=== PATIENT | male | born 1940 | race Caucasian/White ===

== ENCOUNTER 2024-04-08 04:17 | Emergency (ER) | payer MEDICARE, BC, SELFPAY ==
[2024-04-08 04:23] VITALS: BP 97/60; BP 97/80; PULSE 85; PULSE 88; PULSE 93; RESP 143; RESP 16; RESP 17; TEMP 36.7; O2SAT 99; BMI 20.3
--- NOTE | 2024-04-08 04:24 | XR_ITS ---
Examination: CT cervical spine without contrast 2-D sagittal reconstructions 2-D coronal reconstructions 3-D reconstructions. Exam date and time:April 08, 2024 0455 hrs. Indications: Patient fell today with injury to the neck, neck pain CTDI:vol (mGy) 7.50 DLP: (mGycm) 171 Technique: Multiple 2 mm axial sections of the cervical spine have been obtained. The coronal and sagittal reconstructions have been obtained. 3-D reconstructions have been obtained. Low dose protocols were performed. One or more of the following dose reduction techniques were used; automated exposure control, adjustment of the mA and/or KV according to patient size, use of iterative reconstruction technique. Findings: Axial sections demonstrate intact base of the skull. C1 exhibit satisfactory relationship to the odontoid. No acute cervical vertebral body fracture seen. Alignment posterior spinous processes satisfactory. Impression: No acute cervical fracture.
--- NOTE | 2024-04-08 04:24 | XR_ITS ---
Examination: CT brain head without contrast. 2-D sagittal coronal reconstructions Date and time of exam:April 08, 2024 at 0455 hrs. Indications: Patient fell today with injury to the head, head pain CTDI: vol (mGy):54.3 DLP: (mGycm):1122 Technique: Multiple CT axial sections of the brain have been obtained, 5 mm slice thickness. Contrast has not been administered. 2-D sagittal, coronal reconstructions have been obtained Low dose protocols were performed. One or more of the following dose reduction techniques were used; automated exposure control, adjustment of the mA and/or KV according to patient size, use of iterative reconstruction technique. Findings: Mild to moderate ventricular enlargement. Old infarct in the right cerebellar hemisphere Intra-axial or extra-axial hemorrhage density is not seen. No mass effect or midline shift Basal cisterns are not remarkable. Fourth ventricle is midline. Cranial vault intact. Impression: Negative for acute hemorrhage, mass effect or midline shift
--- NOTE | 2024-04-08 04:34 | EDNOTE_ITS ---
ED Fall Injury RME/HPI General Chief Complaint: Fall Stated Complaint: fall Time Seen by Provider: 04/08/24 04:24 Arrival date/time: 04/08/24 04:17 RME / HPI RME / HPI Narrative: Dr. Eas[facility]?s Main ED Evaluation: 83yo male with pmhx CVA, CAD s/p permanent pacemaker, AFib, hypertension BIB[facility] from [facility] presents to the ED for a chief complaint of a fall. Patient states he does not remember falling tonight. He does not have any medical complaints. Per EMS, patient's fall was unwitnessed. Unknown LOC. Patient is on Plavix. No further history reported at this time. Patient is a DNR/DNI. Related Data Home Medications ?Medication ?Instructions ?Recorded ?Confirmed cyanocobalamin (vitamin B-12) 1,000 mcg PO QDAY #0 tabs 03/25/15 01/23/21 1,000 mcg tablet (Vitamin B-12) lisinopril 5 mg tablet 5 mg PO QDAY #0 tabs 03/12/16 01/23/21 cholecalciferol (vitamin D3) 50 2,000 unit PO QDAY #0 caps 05/28/16 01/23/21 mcg (2,000 unit) capsule (Vitamin D3) famotidine 20 mg tablet 20 mg PO DAILY 07/02/20 01/23/21 selegiline HCl 5 mg tablet 5 mg PO BID 01/23/21 01/23/21 Previous Rx's ?Medication ?Instructions ?Recorded clopidogrel 75 mg tablet 75 mg PO QDAY BLOOD THINNER #0 tabs 07/05/20 Allergies Allergy/AdvReac Type Severity Reaction Status Date / Time codeine Allergy Severe HIVES, Verified 01/07/24 13:59 ITCHING Review of Systems Review of Systems Systems Reviewed: All systems reviewed, normal except as documented Past Medical History Past Medical History NEUROLOGIC: Positive Neurological Disorders, Cerebrovascular Accident, Transient Ischemic Attacks (TIA), Dementia and Parkinson's Disease; Negative Alzheimer's Disease, Brain Tumor, Meningitis, Seizures, Epilepsy, Multiple Sclerosis, Cerebral Palsy, Amyotrophic Lateral Sclerosis (ALS/Cele Gehrig's), Guillain-[place] Syndrome, Spina Bifida, Paralysis, Peripheral Neuropathy, Dasilva's Palsy, Subdural Hematoma, Migraine, Head Trauma, Spinal Cord Injury or Traumatic Brain Injury CARDIAC: Positive Cardiac Disorders and Hypertension; Negative Myocardial Infarction, Cardiac Arrhythmia, Atrial Fibrillation, Angina, Heart Murmur, Coronary Artery Disease, Atherosclerotic Heart Disease, Peripheral Vascular Disease, Hypercholesterolemia, Aneurysm, Congestive Heart Failure, Congenital Heart Disease, Valvular Heart Disease, Rheumatic Fever, Cardiomyopathy, Edema, Pericarditis, Cellulitis, Deep Vein Thrombosis, Hypotension or Varicose Veins RESPIRATORY: Positive Pulmonary Embolism; Negative Chronic Obstructive Pulmonary Disease (COPD), Asthma, Bronchitis, Emphysema, Pneumonia, Pulmonary Fibrosis, Cystic Fibrosis, Tuberculosis, Pulmonary Edema or Sleep Apnea GASTROINTESTINAL: Positive Gastrointestinal Disorders, Hemorrhoids and Gastroesophageal Reflux Disease; Negative Hepatitis, Cirrhosis, Pancreatitis, Celiac Disease, Gall Bladder Disease, Gastrointestinal Bleed, Esophageal Varices, [place]'s Esophagus, Colitis, Ulcerative Colitis, Diverticulitis, Diverticulosis, Ulcer, Colorectal Cancer, Irritable Bowel, Crohn's Disease, Obstructive Bowel, Hiatal Hernia or Obesity GENITOURINARY: Negative Genitourinary Disorders, Renal Disease, Kidney Stones, Polycystic Kidney Disease, Neurogenic Bladder, Inguinal Hernia, Dialysis, Prostate Cancer or Benign Prostatic Hyperplasia REPRODUCTIVE: Negative Breast Cancer or Testicular Cancer MUSCULOSKELETAL: Positive Musculoskeletal Disorders, Arthritis and Fractures; Negative Muscular Dystrophy, Myasthenia Gravis, Marfan's Syndrome, Bone Cancer, Rheumatoid Arthritis, Osteoporosis, Degenerative Disk Disease, Gout, Scoliosis, Carpal Tunnel Syndrome, Fibromyalgia, Degenerative Joint Disease, Osteomyelitis or Poliovirus ENT: Positive Cataracts, Macular Degeneration and Deafness; Negative Glaucoma, Blind, Retinal Detachment, Ear Infection, Head Trauma or Eye Prosthesis ENDOCRINE: Negative Endocrine Disorders, Diabetes Mellitus Type 1, Diabetes Mellitus Type 2, Hypoglycemia, [place]'s Syndrome, [place]'s Disease, Hyperthyroidism, Hypothyroidism, Parathyroid Disease, Pituitary Disease, Systemic Lupus Erythematosus, Syndrome of Inappropriate Antidiuretic Hormone (SIADH), Adrenal Disease or Graves' Disease HEMATOLOGIC: Positive Blood Disorders and Clotting Problems; Negative Anemia, Leukemia, Hemophilia, Thalassemia or Sickle Cell Disease PSYCHO/SOCIAL: Positive Depression; Negative Psychiatric Problems, Schizophrenia, Recreational Drug Use, Bipolar Disorder, Anxiety, Behavior Problems, Self-Mutilation, Attention Deficit Disorder, Attention Deficit Hyperactivity Disorder, Depression, Post Traumatic Stress Disorder or Eating Disorder OTHER HISTORY: Positive Hospitalization, Falls, Chemotherapy, Radiation Therapy, Chicken Pox, Measles, Mumps, Cancer and Lung Cancer; Negative Autoimmune Disease, Down Syndrome, Autism, Developmental Delay, Shingles, Blood Transfusions, Blood Transfusion Reaction, Anesthesia Reactions, Organ Transplant, Hyperbaric Therapy, MRSA, VRSA, Vancomycin-Resistant Enterococci, Human Immunodeficiency Virus (HIV), Rubella ([place]erratian Measles), Pertussis, Clostridium Difficile, Breast Cancer, Colorectal Cancer, Prostate Cancer or Testicular Cancer Family History FAMILY HISTORY: Positive Family Respiratory Disorders, Family Cancer and Family Surgery; Negative Family Psychiatric Problems, Family Cardiac Disorders (pt dont know family med hx), Family Gastrointestinal Problems or Family Anesthesia Reaction Surgical History SURGICAL: Positive Eye Surgery (bilateral cataracts surgery) and Abdominal Surgery; Negative Cardiac Surgery, Open Heart Surgery, Coronary Artery Bypass Graft, Valve Replacement, Vascular Surgery, Coronary Stent, Cardiac Catheterization, Pacemaker, Angiogram, Auto Implanted Cardiovert Defib, Carotid Endarterectomy, Endocrine Surgery, Thyroidectomy, Ear Surgery, Tympanostomy Tube, Nose Surgery, Oral Surgery, Tonsillectomy, Adenoidectomy, Cochlear Implant, Corneal Transplant, Throat Surgery, Tracheostomy, Gastric Bypass Surgery, Gastrostomy, Bowel Surgery, Nephrectomy, Transurethral Resection, Joint Replacement, Amputation, Open Reduction Internal Fixation, Arthroscopy, Neurologic Surgery, Brain Shunt, Vasectomy or Organ Transplant Social History SMOKING STATUS: Unknown if ever smoked ED Exam Narrative Physical exam: GENERAL APPEARANCE: alert and oriented x 4, well-developed, well-nourished, no acute distress VITALS: All vitals were reviewed and the pulse ox is % on room air, which is normal according to my interpretation. HEENT: Normocephalic, 5 cm linear laceration to the right parietal area, has well healed surgical scars to various areas on the scalp; pupils are pinpoint; EOMI; mucous membranes pink, moist; oropharynx clear NECK: Supple LUNGS: CTABL; no wheezes, no rales, no rhonchi HEART: Regular rate, regular rhythm; normal S1, S2; no murmurs ABDOMEN: non distended; normal BS; soft, no tenderness, no guarding, no rebound; no masses, no organomegaly, no hernia BACK: no CVA tenderness EXTREMITIES: atraumatic; no edema NEUROLOGIC: awake; alert and oriented x4; cranial nerves II-XII grossly intact; no focal sensory or motor deficits PSYCHIATRIC: appropriate mood and affect SKIN: warm, dry, normal color; no rashes Course Quality Measures none Orders Category Date Time Status EKG (ED ONLY) *Do not use* NOW Care 04/08/24 04:[address] cervical spine wo con Stat Exams 04/08/24 04:[address] head/brain wo con Stat Exams 04/08/24 04:24 Taken EKG (ED Only) Stat Exams 04/08/24 04:34 Ordered Vital Signs Vital signs: Vital Signs Temperature 98.0 F 04/08/24 04:23 Pulse Rate 93 04/08/24 04:23 Respiratory Rate 143 H 04/08/24 04:23 Blood Pressure 97/60 04/08/24 04:23 Pulse Oximetry (%) 99 04/08/24 04:23 Oxygen Delivery Method Room Air 04/08/24 04:23 Fall MDM Narrative MDM Narrative:: I placed 7 shi to the patient's right parietal area. Patient tolerated well. Patient data External records reviewed:: [facility] previous records (Per chart review, patient was seen here on 01/07/[address] [facility] for a C4 fx.) and [facility] records (Per POL, patient is a DNR/DNI.) Clinical information provided by:: patient Social determinants that could affect healthcare access:: none Patient has the following chronic illnesses:: CVA, CAD s/p permanent pacemaker, AFib, on Plavix, hypertension How is presenting disease/condition affected by chronic disease/condition?: uneffected by Evaluation data The following diagnostics were reviewed and interpreted by me:: lab results, radiology exam(s) and EKG tracing(s) Lab and/or radiology exams considered but not ordered:: none Interpretation Summary: EKG done at 0436, aFib, rate of 87, left axis deviation, no STEMI, according to my interpretation. ----- [facility] Preliminary Report Draft Patient: MIKE ROY [facility]. Record#: [id number] Birthdate: 1940 Age/Sex: 83 / M Location: [facility] Attending Dr: Ordering Physician: Date of Service: Procedure(s): Accession Number(s): cc: ~ CT scan of the head without intravenous contrast (axial sections with sagittal and coronal reformats) April 08, 2024 0455 hours Clinical History: fell Comparison: No prior study is available for comparison. Findings: There is no evidence of intracranial hemorrhage, mass effect or midline shift. There is a chronic infarct in the right cerebellum. There are periventricular white matter hypodensities, compatible with chronic small vessel ischemia. There is moderate volume loss. The calvarium is intact. The mastoid air cells and the visualized paranasal sinuses are clear. There is a small hematoma/ laceration in the right frontal scalp. Impression: No evidence of intracranial hemorrhage, midline shift or calvarial fracture. Periventricular chronic small vessel ischemia,chronic infarct. and volume loss. Report Electronically Signed By: Rashard Green 04/08/2024 5:27:08 AM [EST] ------ [facility] Preliminary Report Draft Patient: MIKE ORY. Record#: [id number] Birthdate: 1940 Age/Sex: 83 / M Location: [facility] Attending Dr: Ordering Physician: Date of Service: Procedure(s): Accession Number(s): cc: ~ CT scan of the cervical spine without intravenous contrast (axial sections with sagittal and coronal reformats) April 08, 2024 0455 hours Clinical History: fell Comparison: No prior study is available for comparison. Findings: There is no acute fracture or traumatic subluxation. There is a chronic deformity of the C5 spinous process. There are multilevel degenerative changes in the form of marginalbridging osteophytes, endplate changes, decreased disc height, uncinate process and facet arthrosis, most prominent at C4-C5, C5-C6 and C6-C7 levels causing mild spinal canal and bilateral neural foraminal narrowing. The prevertebral soft tissues are unremarkable. Impression: No evidence of acute fracture or traumatic subluxation. Degenerative changes as described above. Report Electronically Signed By: Rashard Green 04/08/2024 5:34:33 AM [EST] Medications / Prescriptions Medications or Prescriptions considered but not ordered:: none Medication administrations:: see above, if any Consultations Consultation(s) initiated? (list below): No Diagnosis Fall Differential Diagnosis: other (fall with injury, laceration, concussion, ICH) Most likely diagnosis given after review of the tests above:: see below Admission Indicated Admission indicated?: not indicated Admission Request Was there a request for admission?: No Disposition Plan Disposition Plan: Discharge Discharge Attestation Discharge Attestation: The patient and all family members were given an opportunity to ask questions and understood the discharge instructions. Discharge instructions specifically effects, indications for sooner follow up or return to the emergency department, and the expected course of current diagnosis. Patient condition: Stable Discharge Plan Plan Patient Disposition: Xfer Skilled Nsg Fac (SNF) Patient condition on transfer: Stable Prescriptions/Referrals Prescriptions/Med Rec: No Action cyanocobalamin (vitamin B-12) [Vitamin B-12] 1,000 MCG tablet 1,000 mcg PO QDAY Qty: 0 lisinopril 5 MG tablet 5 mg PO QDAY Qty: 0 cholecalciferol (vitamin D3) [Vitamin D3] 2,000 UNIT capsule 2,000 unit PO QDAY Qty: 0 famotidine 20 mg Tablet 20 mg PO DAILY clopidogrel 75 MG tablet 75 mg PO QDAY Qty: 0 0RF Hold Instructions: Resume on 01/30/21. Rx Instructions: Continue on 07/06/20 selegiline HCl 5 mg Tablet 5 mg PO BID Referrals: Travon Huffman MD [Primary Care Provider] - In 1 week Problem List Clinical Impression: Fall Patient/Caregiver Discharge Instructions Education Materials: Preventing Falls Making ..., ED Fall with Uncertain Cause Additional Instructions: Your CT scans are negative for any acute fractures or bleeding. Please follow up with your PCP in 24 to 48 hours. Return to ED immediately for any worsening symptoms or as needed. Print Language: Indonesian Stand Alone Forms: Cyndi Award Info., Patient Portal Info Letter
--- NOTE | 2024-04-08 05:27 | PRELIM_ITS ---
CT scan of the head without intravenous contrast (axial sections with sagittal and coronal reformats) April 08, 2024 0455 hoursClinical History: fellComparison: No prior study is available for compar jan. Findings:There is no evidence of intracranial hemorrhage, mass effect or midline shift. There i s a chronic infarct in the right cerebellum. There are periventricular white matter hypodensities, co mpatible with chronic small vessel ischemia. There is moderate volume loss. The calvarium is intact. The mastoid air cells and the visualized paranasal sinuses are clear. There is a small hematoma/ lace ration in the right frontal scalp.Impression:No evidence of intracranial hemorrhage, midline shift or calvarial fracture. Periventricular chronic small vessel ischemia,chronic infarct. and volume loss. Report Electronically Signed By: Rashard Green 04/08/2024 5:27:08 AM [EST]
--- NOTE | 2024-04-08 05:34 | PRELIM_ITS ---
CT scan of the cervical spine without intravenous contrast (axial sections with sagittal and coronal reformats) April 08, 2024 0455 hours Clinical History: fell Comparison: No prior study is availab le for comparison. Findings:There is no acute fracture or traumatic subluxation. There is a chronic d eformity of the C5 spinous process. There are multilevel degenerative changes in the form of margina lbridging osteophytes, endplate changes, decreased disc height, uncinate process and facet arthrosis , most prominent at C4-C5, C5-C6 and C6-C7 levels causing mild spinal canal and bilateral neural fora luzma narrowing. The prevertebral soft tissues are unremarkable.Impression:No evidence of acute frac ture or traumatic subluxation.Degenerative changes as described above. Report Electronically Signed By: Rashard Green 04/08/2024 5:34:33 AM [EST]
[2024-04-08 05:56] VITALS: BP 138/97; PULSE 89; RESP 16; O2SAT 100
--- NOTE | 2024-04-08 08:02 | PC.NURSE ---
Pt. here from [facility] to bed 4 for a fall, pt. states he was trying to do something himself. Pt. has a c-collar in place for a neck fracture from December, pt. has 7 shi to the laceration/raised round bump to the right upper side of his head. Laceration has minimal bleeding, non stick dressing, 4x4 applied and pt.'s head was wrapped. Pt. tolerated well. No s/s of distress.
[2024-04-08 08:33] VITALS: BP 126/90; PULSE 99; RESP 17; TEMP 36.6; O2SAT 97
== END 2024-04-08 08:33 | disposition skilled nursing facility (03) ==
PROVIDERS: Emergency Provider Emergency Medicine; PCP Family Medicine
DX: S01.01XA Laceration without foreign body of scalp, initial encounter (principal); S09.90XA Unspecified injury of head, initial encounter; R51.9 Headache, unspecified; W19.XXXA Unspecified fall, initial encounter; I48.91 Unspecified atrial fibrillation; I25.10 Atherosclerotic heart disease of native coronary artery without angina pectoris; I10 Essential (primary) hypertension; Z95.0 Presence of cardiac pacemaker; Z79.02 Long term (current) use of antithrombotics/antiplatelets
CPT/HCPCS: 70450; 72125; 93005; 99284

== ENCOUNTER → 2024-09-26 | Outpatient (CLI) | payer MEDICARE, BC, SELFPAY ==
[2024-09-26 14:53] LABS: Collection Type, Urine Clean Catch; RBC,Urine 0 /hpf (0-3)
[2024-09-26 16:01] LABS: Bilirubin,Urine Negative (Negative); Blood,Urine Negative (Negative); Calcium Oxalate Crystals,Urine 3+; Color,Urine Yellow (Lt Yel-Yel); Glucose, Urine Negative (Negative); Hyaline Casts,Urine < 1 /hpf (0-1); Ketones,Urine Negative (Negative); Leukocyte Esterase,Urine Negative (Negative); Nitrite,Urine Negative (Negative); Protein,Urine Trace (Neg - Trace); Squamous Epithelial Cell,Urine < 1 /hpf (0-5); Urobilinogen,Urine Negative mg/dL (0.0-1.0); WBC,Urine 3 /hpf (0-5)
[2024-09-26 16:11] LABS: Clarity,Urine Turbid (Clear/Hazy)
== END | disposition home or self-care (01) ==
LOC: SLDO 14:30
PROVIDERS: Referring Provider Physician Assistant; Visit Provider Physician Assistant
DX: N39.0 Urinary tract infection, site not specified (principal)
CPT/HCPCS: 81001; 87086